=== PATIENT | male | born 1985 | race Caucasian/White ===

== ENCOUNTER 2019-09-18 22:12 | Emergency (ER) | payer SELFPAY ==
[2019-09-18 22:24] VITALS: BP 127/79; PULSE 85; TEMP 98.5; BMI 34.2
--- NOTE | 2019-09-18 23:50 | PDOC ---
History of Present Illness - General Chief Complaint: Pain Stated Complaint: LT FOOT INJURY Time Seen by Provider: 09/18/19 23:49 History Source: Patient Exam Limitations: No Limitations - History of Present Illness Initial Comments: 09/19/19 00:07 34y previously healthy M presenting w 2 week L foot pain. Saw correctional facility nurse 1 week ago, diagnosed with plantar wart, prescribed salicylic acid. Pt still has pain over wart. Wart has not grown. Still able to ambulate. Did not take any pain meds. Denies fever Past History - Past Medical History Allergies/Adverse Reactions: Allergies Allergy/AdvReac Type Severity Reaction Status Date / Time No Known Allergies Allergy Verified 09/18/19 22:24 COPD: No - Psycho Social/Smoking Cessation Hx Smoking History: Never smoked Review of Systems - Review of Systems Constitutional: No: Chills, Fever HEENTM: No: Eye Pain, Nose Pain, Throat Pain, Mouth Pain Respiratory: No: Cough, Shortness of Breath Cardiac (ROS): No: Chest Pain, Palpitations, Syncope ABD/GI: No: Abdominal Distended, Constipated, Diarrhea, Nausea, Vomiting : No: Burning, Dysuria, Flank Pain Musculoskeletal: No: Back Pain, Joint Pain Integumentary: No: Bruising, Dryness, Erythema Neurological: No: Headache, Seizure, Tingling Psychiatric: No: Anxiety, Depression, Stressors Endocrine: No: Excessive Sweating, Flushing, Intolerance to Cold, Intolerance to Heat Hematologic/Lymphatic: No: Anemia, Blood Clots *Physical Exam - Vital Signs Last Vital Signs Temp Pulse Resp BP Pulse Ox 98.5 F 85 19 127/79 100 09/18/19 22:20 09/18/19 22:20 09/18/19 22:20 09/18/19 22:20 09/18/19 22:20 - Physical Exam General Appearance: Yes: Nourished, Appropriately Dressed. No: Apparent Distress HEENT: positive: EOMI, ARISTEO, Normal Voice. negative: Scleral Icterus (R), Scleral Icterus (L), Nasal Congestion Respiratory/Chest: positive: Lungs Clear, Normal Breath Sounds. negative: Chest Tender, Respiratory Distress, Crackles, Rales, Rhonchi, Stridor, Wheezing Cardiovascular: positive: Regular Rhythm, Regular Rate, S1, S2. negative: Edema , Murmur Extremity: positive: Normal Capillary Refill, Other (1.5cm tender plantar wart L foot. Not erythematous/warm) Integumentary: positive: Normal Color Neurologic: positive: Fully Oriented, Alert, Normal Mood/Affect, Normal Response , Motor Strength 5/5, Responsive. negative: Numbness, Sensory Deficit, Confused , Disoriented Medical Decision Making - Medical Decision Making 09/19/19 00:10 34y previously healthy M presenting w 2 week L foot pain d/t plantar wart. Foot neurovascular intact, pt still able to ambulate without assistance, no evidence of cellulitis. Pt eloped before attending evaluated pt. Discharge - Discharge Information Problems reviewed: Yes Clinical Impression/Diagnosis: Plantar wart of left foot Condition: Good Disposition: ELOPED - Admission No - Follow up/Referral - Patient Discharge Instructions Patient Printed Discharge Instructions: Plantar Warts Additional Instructions: You were seen for foot pain. You have a plantar wart Continue taking your salicylic acid as directed. You can use Wart Remover Medicated Discs to reduce the pain. Wear socks. Avoid touching the wart Please follow up with your correctional facility nurse Come back to the ED if you have redness/swelling/or warmth around the wart. - Post Discharge Activity
--- NOTE | 2019-09-19 00:32 | PDOC ---
Documentation entered by Tessa Grady SCRIBE, acting as scribe for Eli Lopez MD. Eli Lopez MD: This documentation has been prepared by the Ysabel castro Nirvannie, SCRIBE, under my direction and personally reviewed by me in its entirety. I confirm that the documentation accurately reflects all work, treatment, procedures, and medical decision making performed by me. Attending Attestation - Resident Resident Name: LambertRamiro - ED Attending Attestation I have performed the following: I have examined & evaluated the patient, The case was reviewed & discussed with the resident, I agree w/resident's findings & plan, Exceptions are as noted - HPI HPI: 09/19/19 00:16 The patient is a 34 year old male, with no significant past medical history, who presents to the emergency department with 2 weeks of left foot pain. As per patient, he was evaluated by a supervisor drapery hanging a week ago at which time he was diagnosed with a plantar wart and prescribed Salicylic Acid. He notes persistent pain to the affected area. He denies taking anything for the pain. He denies difficulty ambulating. He denies any recent fevers, chills, headache or dizziness. He denies any recent nausea, vomit, diarrhea or constipation. He denies any recent chest pain or shortness of breath. Allergies: NKDA - Physicial Exam PE: Pt eloped the ED prior to my exam - Medical Decision Making Pt eloped prior to my evaluation.
== END 2019-09-19 00:33 | disposition left against medical advice (07) ==
LOC: JER 22:12
DX: B07.0 Plantar wart (principal)
CPT/HCPCS: 99282-25

== ENCOUNTER 2021-06-14 21:19 | Emergency (ER) | payer OTHER ==
[2021-06-14 21:36] VITALS: TEMP 98.6; BMI 33.7
[2021-06-14] MEDS ORDERED: METOCLOPRAMIDE HCL 10 MG TABLET (FP) PO ONE ×2 (21:42→21:48)
[2021-06-14] MEDS ORDERED: KETOROLAC TROMETHAMINE 60 MG/2 ML VIAL IM ONE (21:42)
[2021-06-14] MEDS ORDERED: KETOROLAC TROMETHAMINE 60 MG/2 ML VIAL ONE (21:48)
[2021-06-14 22:36] VITALS: BP 144/87; PULSE 95
[2021-06-16 16:07] LABS: SARS-CoV-2 NAA Not Detected (Not Detected)
== END 2021-06-14 23:11 | disposition home or self-care (01) ==
LOC: FER 21:19
PROC: 3E023GC Introduction of Other Therapeutic Substance into Muscle, Percutaneous Approach (ICD-10-PCS; principal; 2021-06-14)
DX: R51.9 Headache, unspecified (principal)
CPT/HCPCS: 70450-TC; 99284-25; C9803; U0003; U0005

== ENCOUNTER 2021-11-29 05:11 | Day surgery (SDC) | payer OTHER ==
[2021-11-26 12:26] VITALS: BMI 34.8
[2021-11-29] MEDS ORDERED: SCOPOLAMINE HYDROBROMIDE 1 PATCH PATCH.TD72 ONE (11:48)
[2021-11-29] MEDS ORDERED: ROCURONIUM BROMIDE 50 MG/5 ML SYRINGE ONE (12:19)
[2021-11-29] MEDS ORDERED: PROPOFOL 20 ML ONE (12:19)
[2021-11-29] MEDS ORDERED: MIDAZOLAM HCL 2 MG/2 ML SINGLE DOSE VIAL ONE (12:19)
[2021-11-29] MEDS ORDERED: OXYMETAZOLINE 0.05% NASAL SOLUTION 15 ML BOTTLE NS ONE (12:34)
[2021-11-29] MEDS ORDERED: BACITRACIN 15 GM TUBE TOPICAL OINTMENT ONE (13:03)
[2021-11-29] MEDS ORDERED: oxyCODONE HCL 5 MG TABLET PO PRN (14:32)
[2021-11-29] MEDS ORDERED: ONDANSETRON 4 MG/2 ML VIAL IVPUSH PRN (14:32)
[2021-11-29] MEDS ORDERED: ACETAMINOPHEN 500 MG TABLET (FP) PO PRN (14:32)
[2021-11-29 17:09] VITALS: BP 140/84; PULSE 96; TEMP 98.2
== END 2021-11-29 17:30 | disposition home or self-care (01) ==
LOC: JASU-SURG 05:11
PROVIDERS: ATTEND Otolaryngology
PROC: 09SM4ZZ Reposition Nasal Septum, Percutaneous Endoscopic Approach (ICD-10-PCS; 2021-11-29)
PROC: 0CBN0ZZ Excision of Uvula, Open Approach (ICD-10-PCS; principal; 2021-11-29 13:00)
DX: J34.2 Deviated nasal septum (principal); G47.33 Obstructive sleep apnea (adult) (pediatric); J34.3 Hypertrophy of nasal turbinates; R06.83 Snoring; R09.81 Nasal congestion
CPT/HCPCS: 88302-TC; 88304-TC; 94760